=== PATIENT | female | born 1955 | race American Indian/Alaskan Native ===

== ENCOUNTER 2016-08-31 07:35 | Outpatient (CLI) | payer OTHER ==
--- NOTE | 2016-08-31 10:30 | Mammography Report ---
BILATERAL MAMMOGRAM: FINDINGS: The breasts are almost entirely fat (<25% glandular). No mass, distortion, suspicious calcification, or skin change is seen. No significant changes compared to prior exams in 2013 and 2015. CAD was utilized. IMPRESSION: Negative mammogram. There is no mammographic evidence of malignancy. RECOMMENDATION: Follow-up per ACS guidelines. BI-RADS CATEGORY: 1 = Negative ACR BI-RADS MAMMOGRAPHIC CODES: 0 = Needs additional imaging evaluation; 1 = Negative; 2 = Benign; 3 = Probably benign; 4 = Suspicious; 5 = Malignant; 6 = Known biopsy-proven malignancy COMMENT: 1. Dense breast tissue, i.e., adenosis, fibrocystic changes, etc., may obscure an underlying neoplasm. 2. Approximately 10% of cancers are not detected with mammography. 3. A negative mammography report should not delay biopsy if a clinically suspicious mass is present. COMMENT: Patient follow-up letters are generated in [employer].
== END 2016-08-31 07:36 | disposition home or self-care (01) ==
LOC: MAMMO 07:35
PROVIDERS: ATTEND Internal Medicine
DX: Z12.31 Encounter for screening mammogram for malignant neoplasm of breast (principal)
CPT/HCPCS: 77067; G0202

== ENCOUNTER 2019-07-04 09:33 | Outpatient (CLI) | payer OTHER ==
--- NOTE | 2019-07-04 10:08 | XRay Report ---
LEFT KNEE 2 VIEWS INDICATION: PAIN IN LEFT KNEE. COMPARISON: 05/29/2019 IMPRESSION: Lateral tibial plateau fracture appears unchanged in position and alignment since 2018 exam. Fracture lines remain vaguely evident. No new acute osseous injury. No significant degener ative changes. Joint effusion has decreased by 50%. Signer Name: Greg Crockett Jr, MD Signed: 07/04/2019 10:04 AM Workstation Name: [id number]
== END 2019-07-04 09:34 | disposition home or self-care (01) ==
LOC: XRAY 09:33
PROVIDERS: ATTEND Orthopaedic Surgery
DX: M25.462 Effusion, left knee (principal)

== ENCOUNTER 2020-10-21 08:51 | Outpatient (CLI) | payer MEDICARE, OTHER ==
--- NOTE | 2020-10-21 10:07 | Mammography Report ---
DIGITAL SCREENING MAMMOGRAM WITH CAD, 10/21/2020 INDICATION: Routine screening mammography. TECHNIQUE: Digital bilateral 2D mammography was obtained in the craniocaudal and mediolateral obliq ue projections. This examination was interpreted with the benefit of Computer-Aided Detection analysi s. COMPARISON: 09/11/2018. FINDINGS: Breast Density: The breasts are almost entirely fatty. There is no evidence of dominant mass, suspicious calcifications or architectural distortion in eithe r breast. IMPRESSION: Follow up recommendation: Routine yearly BI-RADS Category 1: Negative. A "normal" or negative report should not discourage follow up or biopsy of a clinically significant f inding. A written summary of these findings will be mailed to the patient. The patient will be entered into a mammography reporting system which will generate a reminder letter for the patient's next appointmen t at the appropriate interval. The [employer] recommends yearly mammograms starting at age 40 and continuing as l radha as a woman is in good health. Breast MRI is recommended for women with an approximate 20-25% or greater lifetime risk of breast cancer, including women with a strong family history of breast or ova james cancer or who have been treated for Hodgkin's disease. Signer Name: Paco Terrazas MD Signed: 10/21/2020 10:02 AM Workstation Name: [id number]
== END 2020-10-21 08:52 | disposition home or self-care (01) ==
LOC: MAMMO 08:51
PROVIDERS: ATTEND Internal Medicine
DX: Z12.31 Encounter for screening mammogram for malignant neoplasm of breast (principal)
CPT/HCPCS: 77067

== ENCOUNTER 2021-10-22 07:51 | Outpatient (CLI) | payer MEDICARE, OTHER ==
--- NOTE | 2021-10-25 18:33 | Mammography Report ---
DIGITAL SCREENING MAMMOGRAM WITH CAD, 10/22/2021 CLINICAL INFORMATION / INDICATION: Routine screening mammography. TECHNIQUE: Digital bilateral 2D mammography was obtained in the craniocaudal and mediolateral obliqu e projections. This examination was interpreted with the benefit of Computer-Aided Detection analysis . COMPARISON: 09/11/2018 FINDINGS: Breast Density: The breasts are almost entirely fatty. No dominant mass, suspicious calcifications, or architectural distortion in either breast. No interval change. IMPRESSION: No mammographic evidence of malignancy. Follow up recommendation: Routine yearly screening mammogram. BI-RADS Category 1: NEGATIVE A "normal" or negative report should not discourage follow up or biopsy of a clinically significant f inding. A written summary of these findings will be mailed to the patient. The patient will be entered into a mammography reporting system which will generate a reminder letter for the patient's next appointmen t at the appropriate interval. The [employer] recommends yearly mammograms starting at age 40 and continuing as l radha as a woman is in good health. Breast MRI is recommended for women with an approximate 20-25% or greater lifetime risk of breast cancer, including women with a strong family history of breast or ova james cancer or who have been treated for Hodgkin's disease. Signer Name: Dana Palacios MD Signed: 10/25/2021 6:28 PM Workstation Name: [id number]
== END 2021-10-22 07:52 | disposition home or self-care (01) ==
LOC: MAMMO 07:51
PROVIDERS: ATTEND Internal Medicine
DX: Z12.31 Encounter for screening mammogram for malignant neoplasm of breast (principal)
CPT/HCPCS: 77067